=== PATIENT | male | born 1985 | race Caucasian/White ===

== ENCOUNTER 2019-06-01 10:02 | Emergency (ER) | payer SELFPAY ==
[~2019-06-01] VITALS: Ht 160 cm; Wt 54.4 kg
[2019-06-01 10:03] VITALS: Ht 160 cm; Wt 54.4 kg
[2019-06-01 10:51] LABS: BASOPHIL % 0.3 % (0-2); PLATELET COUNT 332 x10^3mcL (130-400); RED CELL DISTRIBUTION WIDTH 12.8 % (11.5-14.5)
[2019-06-01 11:12] LABS: CALCIUM 8.2 mg/dL (8.5-10.1); CARBON DIOXIDE 24.7 mmol/L (21-32); CHLORIDE SERUM 107 mmol/L (98-107); CREATININE SERUM 1.2 mg/dL (0.7-1.3); GFR1 > 60 mL/min; GLUCOSE SERUM 87 mg/dL (74-106); POTASSIUM SERUM 3.5 mmol/L (3.5-5.1); SODIUM SERUM 145 mmol/L (136-145)
[2019-06-01 11:16] LABS: ALKALINE PHOSPHATASE 114 U/L (46-116); ALT/SGPT 30 U/L (16-63); AST/SGOT 30 U/L (15-37); BILIRUBIN TOTAL 0.5 mg/dL (0.20-1.00); TOTAL PROTEIN, SERUM 7.4 g/dL (6.4-8.2)
[2019-06-01 14:18] VITALS: BP 111/76
== END 2019-06-01 14:18 | disposition other institution (70) ==
LOC: ED 10:02
PROVIDERS: Emergency Medicine
DX: R41.0 Disorientation, unspecified (principal); F15.10 Other stimulant abuse, uncomplicated; S21.132A Puncture wound without foreign body of left front wall of thorax without penetration into thoracic cavity, initial encounter; S41.041A Puncture wound with foreign body of right shoulder, initial encounter; Z90.89 Acquired absence of other organs; W45.8XXA Other foreign body or object entering through skin, initial encounter; Y93.89 Activity, other specified; Y92.89 Other specified places as the place of occurrence of the external cause; Y99.8 Other external cause status
CPT/HCPCS: A4570; G0480; J2060; J7030; Q0092

== ENCOUNTER 2019-06-01 10:02 | Emergency (ER) | payer OTHER | END 2019-06-01 14:18 | disposition other institution (70) | LOC: ED 10:02 | DX: Z02.89 Encounter for other administrative examinations (principal) ==